=== PATIENT | female | born 1945 | race Caucasian/White ===

== ENCOUNTER 2019-07-08 23:18 | Emergency (ER) | payer OTHER, BC ==
[2019-07-08] MEDS ORDERED: predniSONE 5 MG/5 ML ORAL SOLN- UNIT-DOSE CUP PO ONE (23:24)
[2019-07-08 23:26] VITALS: BP 154/86; PULSE 86; TEMP 98.2; BMI 32.5
[2019-07-08] MEDS ORDERED: ALBUTEROL SO4 2.5/IPRATROPIUM 0.5 INH SOL 3 ML VIAL.NEB. NEB ONE ×2 (23:26→23:31)
--- NOTE | 2019-07-08 23:29 | PDOC ---
History of Present Illness - General Chief Complaint: Respiratory Stated Complaint: COUGH X 3 DAYS Time Seen by Provider: 07/08/19 23:20 History Source: Patient Exam Limitations: No Limitations - History of Present Illness Initial Comments: 07/08/19 23:29 This is a 73-year-old female who comes in complaining of persistent cough with some mild shortness of breath. Patient said that when she lays down she gets coughing fits and is unable to sleep. Patient has been concerned about taking anything for the cough because she has atrial fibrillation. Patient denies any chest pain, fever, chills, sputum production. Allergies: as per nursing notes Past Medical History: none Social history: Lives with family. No smoking. No alcohol. No illicit drugs. Surgical history: None General: No fevers or chills, no weakness, no weight loss HEENT: No change in vision. No sore throat,. No ear pain CardioVascular: no chest discomfort. No shortness of breath Respiratory:No cough, or wheezing. Gastrointestinal: no nausea, vomiting, diarrhea or constipation, No rectal bleeding Genitourinary: No dysuria, hematuria, or frequency Musculoskeletal: No joint or muscle pain or swelling Neurologic: No headache, vertigo, dizziness or loss of consciousness Psychiatric: nor depression Skin: No rashes or easy bruising Endocrine: no increased thirst or abnormal weight change Allergic: no skin or latex allergy All other systems reviewed and normal Exam: General: Well-nourished well-developed individual, no acute distress HEENT: Throat: Normal, tonsils normal, no erythema or exudate Neck: Supple, no meningeal signs, no lymphadenopathy Eyes::Pupils equal reactive and round, extraocular motion intact Chest: Nontender to palpation Cardiac: S1-S2 normal, regular rate and rhythm, no murmurs rubs or gallops Respiratory: Patient has diffuse bilateral wheezing in all lung villatoro mild expiratory wheezing Abdomen: Soft, nondistended, normal bowel sounds, there is no tenderness on palpation diffusely Extremities: Warm, dry, no cyanosis, clubbing, or edema Skin: No rashes Neuro: Alert and oriented x3, CN II - XII intact, nonfocal exam with normal strength, normal sensation, normal reflexes, normal gait, Psych: Normal mood and affect Assessment and plan: This is a 73-year-old female with expiratory wheezing and persistent cough after viral upper respiratory tract infection. Patient given prednisone and DuoNeb and portable chest x-ray done 07/09/19 00:32 Reevaluation post nebulizer treatment and prednisone. Patient wheezing is much improved and she feels better with less coughing Chest x-ray shows possible bronchitis versus early pneumonia so we will start patient on azithromycin first dose given in ED and patient discharged Past History - Past Medical History Allergies/Adverse Reactions: Allergies Allergy/AdvReac Type Severity Reaction Status Date / Time No Known Allergies Allergy Verified 07/08/19 23:19 Home Medications: Ambulatory Orders Albuterol Sulfate Inhaler - [Ventolin HFA Inhaler -] 1 - 2 inh PO Q4H #1 inhaler 07/08/19 Amlodipine Besylate 5 mg PO DAILY 07/08/19 Apixaban [Eliquis] 5 mg PO DAILY 07/08/19 Benzonatate [Tessalon Pearls -] 100 mg PO TID #21 capsule 07/08/19 Spironolactone 0 mg PO DAILY 07/08/19 Azithromycin 250 mg PO DAILY #4 tablet 07/09/19 Discharge - Discharge Information Problems reviewed: Yes Clinical Impression/Diagnosis: Asthmatic bronchitis Condition: Stable Disposition: HOME - Admission No - Additional Discharge Information Prescriptions: Albuterol Sulfate Inhaler - [Ventolin HFA Inhaler -] 1 - 2 inh PO Q4H #1 inhaler Azithromycin 250 mg PO DAILY #4 tablet Benzonatate [Tessalon Pearls -] 100 mg PO TID #21 capsule - Follow up/Referral - Patient Discharge Instructions Additional Instructions: Take azithromycin 1 tablet a day for the next 4 days for bronchitis. Use your inhaler 2 puffs as often as every 4-6 hours as needed. Take the Tessalon Perles as prescribed for cough. Tylenol or Motrin as needed for pain or fevers. Return to the emergency department immediately with ANY new, persistent or worsening symptoms. Continue any medications as previously prescribed by your physician. You should follow up with your primary doctor as soon as possible regarding today's emergency department visit. . Please make sure your doctor reviews the results of your emergency evaluation. Thank you for coming to the Emergency Department today for your care. It was a pleasure to see you today. Please note that your evaluation is INCOMPLETE until you follow-up with your doctor. - Post Discharge Activity
[2019-07-08] MEDS ORDERED: prednisoLONE SODIUM PHOSPHATE 15 MG/5 ML ORAL SOLN BOTTLE ONE (23:33)
[2019-07-09] MEDS ORDERED: AZITHROMYCIN IVPB 500 MG in DEXTROSE 5%-WATER - 250 ML IVPB ONE (00:30)
[2019-07-09] MEDS ORDERED: AZITHROMYCIN 500 MG TABLET PO ONE (00:40)
[2019-07-09] MEDS ORDERED: AZITHROMYCIN 250 MG TABLET ONE (00:40)
== END 2019-07-09 00:50 | disposition home or self-care (01) ==
LOC: FER 23:18
PROC: 3E0F7GC Introduction of Other Therapeutic Substance into Respiratory Tract, Via Natural or Artificial Opening (ICD-10-PCS; principal; 2019-07-08)
DX: J45.909 Unspecified asthma, uncomplicated (principal)
CPT/HCPCS: 71045-TC-FY; 99281-25

== ENCOUNTER 2020-09-17 16:26 | Emergency (ER) | payer OTHER, BC | END 2020-09-17 18:11 | disposition home or self-care (01) | LOC: JVIRT 16:26 | DX: Z11.52 Encounter for screening for COVID-19 (principal) | CPT/HCPCS: C9803; G2251-GT; U0003 ==

== ENCOUNTER 2020-09-25 15:06 | Emergency (ER) | payer OTHER, BC ==
[2020-09-26 08:06] LABS: SARS-CoV-2 NAA Not Detected (Not Detected)
== END 2020-09-25 15:23 | disposition home or self-care (01) ==
LOC: JVIRT 15:06
DX: Z11.52 Encounter for screening for COVID-19 (principal)
CPT/HCPCS: C9803; G2251-GT; U0003; U0005

== ENCOUNTER 2023-06-20 15:46 | Emergency (ER) | payer OTHER, BC ==
[2023-06-20 16:00] VITALS: RESP 19; TEMP 99; BMI 30.9
[2023-06-20] MEDS ORDERED: ALBUTEROL SO4 2.5/IPRATROPIUM 0.5 INH SOL 3 ML VIAL.NEB. NEB ONE ×2 (16:31→16:52)
[2023-06-20] MEDS ORDERED: DEXAMETHASONE SOD PHOSPHATE 10 MG/1 ML VIAL IVPUSH ONE (16:31)
[2023-06-20] MEDS ORDERED: DEXAMETHASONE SOD PHOSPHATE 10 MG/1 ML VIAL ONE (16:52)
[2023-06-20 17:08] LABS: HEMOGLOBIN 14.9 G/dL (10.7-15.3); MCHC 33.8 g/dl (32.0-36.0); MEAN CELL VOLUME 94.6 fl (80-96); MEAN PLT VOLUME 8.2 fl (7.5-11.1); PLATELET COUNT 198.2 10^3/uL (134-434); RBC 4.65 10^6/uL (3.60-5.2); RDW 13.3 % (11.6-15.6); WHITE BLOOD COUNT 4.7 10^3/uL (4.0-10.8)
[2023-06-20 17:17] LABS: ALBUMIN 4.9 g/dl (3.4-5.0); BILIRUBIN,TOTAL 0.6 mg/dl (0.2-1); CALCIUM 9.9 mg/dl (8.5-10.1); CREATININE 0.7 mg/dl (0.6-1.3); MAGNESIUM 2.1 mg/dL (1.8-2.4); PLATELET ESTIMATE ADEQUATE; POTASSIUM 4.1 mmol/L (3.5-5.1); TOT PROT 7.6 g/dl (6.4-8.2)
[2023-06-20] MEDS: ALBUTEROL SO4 2.5/IPRATROPIUM 0.5 INH SOL 3 ML VIAL.NEB. NEB SCH ×3 (17:53→18:39)
[2023-06-20 17:55] LABS: N-TERMINAL BNP 932.6 pg/ml (5-450)
[2023-06-20 19:16] VITALS: BP 165/78
[2023-06-23 03:16] VITALS: PULSE 80
== END 2023-06-20 19:47 | disposition home or self-care (01) ==
LOC: FER 15:46
PROC: 3E033GC Introduction of Other Therapeutic Substance into Peripheral Vein, Percutaneous Approach (ICD-10-PCS; principal; 2023-06-20)
PROC: 3E0F7GC Introduction of Other Therapeutic Substance into Respiratory Tract, Via Natural or Artificial Opening (ICD-10-PCS; 2023-06-20)
PROC: 3E0F7GC Introduction of Other Therapeutic Substance into Respiratory Tract, Via Natural or Artificial Opening (ICD-10-PCS; 2023-06-20)
DX: R06.02 Shortness of breath (principal); R05.9 Cough, unspecified; R06.2 Wheezing; R50.9 Fever, unspecified; R09.3 Abnormal sputum; J06.9 Acute upper respiratory infection, unspecified; B97.89 Other viral agents as the cause of diseases classified elsewhere; J20.5 Acute bronchitis due to respiratory syncytial virus; Z20.822 Contact with and (suspected) exposure to COVID-19
CPT/HCPCS: 0241U-QW; 36415; 71046-TC-FY; 80053; 83735; 83880; 84484; 85027; 93005; 99285-25; J1100